=== PATIENT | female | born 1960 | race Caucasian/White ===

== ENCOUNTER 2017-08-23 07:51 | Inpatient (IN) | payer OTHER ==
[2017-07-29 11:31] VITALS: BMI 31.0
--- NOTE | 2017-07-29 12:04 | PAT Medication Instructions ---
Service Date Jul 29, 2017. Current Home Medication List Citalopram (Citalopram Hydrobromide), 20 MG PO QPM Hydrocodone/Acetaminophen 5MG/325MG (Webster 5MG/325MG), 1-2 TABLET PO UD PRN for Pain Latanoprost (Xalatan 0.005% Oph Madelaine), 1 DROPS OP HS Loratadine (Claritin), 10 MG PO QAM Pantoprazole (Protonix), 40 MG PO QAM Medication Instructions For Your Scheduled Surgery - Hold the following medications the morning of surgery: Loratadine (Claritin), 10 MG PO QAM - Take the following medications the morning of surgery with a sip of water: Hydrocodone/Acetaminophen 5MG/325MG (Webster 5MG/325MG), 1-2 TABLET PO UD PRN for Pain (if needed, can be taken up to four hours before surgery) Pantoprazole (Protonix), 40 MG PO QAM - Take the following medications as scheduled the night before surgery: Citalopram (Citalopram Hydrobromide), 20 MG PO QPM Hydrocodone/Acetaminophen 5MG/325MG (Webster 5MG/325MG), 1-2 TABLET PO UD PRN for Pain (if needed) Latanoprost (Xalatan 0.005% Oph Madelaine), 1 DROPS OP HS If you have any questions please call us at [phone] or [phone] or [phone]
[2017-07-29 12:50] LABS: BASO % 0.1 %; BASO ABS # 0.01 K/uL (0-0.2); EOS % 0.3 %; EOS ABS # 0.02 K/uL (0-0.5); HEMATOCRIT 42.5 % (37-47); HEMOGLOBIN 14.6 g/dL (12.0-16.0); IG# 0.01 K/uL (0.00-0.02); LYMPH % 24.8 %; LYMPH ABS # 1.96 K/uL (1.2-3.4); MEAN CELL VOLUME 86.4 fL (80-100); MEAN CORPUSCULAR HEMOGLOBIN 29.7 pg (25-34); MEAN CORPUSCULAR HGB CONC 34.4 g/dl (32-36); MEAN PLATELET VOLUME 9.5 fL (7.4-10.4); MONO % 6.6 %; MONO ABS # 0.52 K/uL (0.11-0.59); NEUT % 68.1 %; NEUT ABS # 5.37 K/uL (1.4-6.5); PLATELET COUNT 279 K/uL (130-400); RED CELL DISTRIBUTION WIDTH CV 13.9 % (11.5-14.5); RED CELL DISTRIBUTION WIDTH SD 43.9 fL (36.4-46.3); WHITE BLOOD COUNT 7.89 K/uL (4.8-10.8)
[2017-07-29 12:58] LABS: PTT PATIENT 26.4 SECONDS (21.0-31.0)
[2017-07-29 13:00] LABS: ALBUMIN 4.2 gm/dl (3.4-5.0); CALCIUM 9.8 mg/dl (8.5-10.1); CREATININE 0.65 mg/dl (0.60-1.20); POTASSIUM 4.7 mmol/L (3.5-5.1)
--- NOTE | 2017-07-29 13:07 | DIAGNOSTIC IMAGING REPORT ---
CHEST 2 VIEWS ROUTINE CLINICAL HISTORY: Preoperative chest COMPARISON STUDY: No previous studies for comparison. FINDINGS: The cardiac and mediastinal contours are normal. There is no evidence of focal pulmonary consolidation. There is no evidence of failure. No pleural effusions are visualized.[ IMPRESSION: No active disease in the chest. Electronically signed by: Hamilton Allan M.D. 07/29/2017 1:06 PM Dictated Date/Time: 07/29/2017 1:06 PM
[2017-07-29 13:24] LABS: HEMOGLOBIN A1C 5.4 % (4.5-5.6)
--- NOTE | 2017-08-19 08:42 | History and Physical ---
History & Physical Date Aug 19, 2017. Chief Complaint Left knee pain History of Present Illness The patient is a 57 year old female with complaints of left knee pain for several years. She has tried conservative therapy with minimal relief. She would like to proceed with scheduled surgery. Past Medical/Surgical History PMHx: GERD, Anxiety, Depression, hypercholesterolemia PSHx: Bilateral carpal tunnel release, cataract surgery, total hysterectomy, appendectomy Additional History Hepatic Disease: No Endocrine Disorder: No Kidney Disease: No Hypertension: No Heart Disease: No Bleeding Tendencies: No Infectious Diseases: No Allergies Coded Allergies: Sulfamethoxazole w/Trimethoprim (Verified Allergy, Unknown, rash on stomach, hands and feet swollen, 07/29/17) Home Medications Scheduled Citalopram (Citalopram Hydrobromide), 20 MG PO QPM Latanoprost (Xalatan 0.005% Oph Madelaine), 1 DROPS OP HS Loratadine (Claritin), 10 MG PO QAM Pantoprazole (Protonix), 40 MG PO QAM Scheduled PRN Hydrocodone/Acetaminophen 5MG/325MG (Hayti 5MG/325MG), 1-2 TABLET PO UD PRN for Pain Physical Examination Skin: warm/dry, no rash Eyes: normal inspection, EOMI ENT: normal ENT inspection Head: normocephalic, atraumatic Neck: supple, no adenopathy Respiratory/Chest: lungs clear, normal breath sounds Cardiovascular: regular rate, rhythm, no murmur Abdomen / GI: normal bowel sounds, non tender Extremities: normal inspection, + pertinent finding (Left knee medial joint line tenderness. Ligaments are intact, decrease ROM and strength due to pain) Neurologic/Psych: no motor/sensory deficits, alert, oriented x 3 Diagnosis Primary osteoarthritis of left knee Plan of Treatment Patient is scheduled for a left total knee arthroplasty. She has tried conservative therapy with minimal relief. She would like to proceed with scheduled surgery. Risks and benefits to surgery were discussed with the patient. She understands these risks and wishes to proceed. All questions were answered to her satisfaction. She will be 81mg BID for DVT prophylaxis and would like to go home with home health after her surgery. NO BLOOD PRODUCTS as the patient is a L[employer] day.
[2017-08-23] VITALS (9 sets, daily range): BP systolic 90–152; BP diastolic 55–79; PULSE 62–76; TEMP 36.3–36.8; O2SAT 93–98; Ht 157.5 cm; Wt 76.5 kg
[~2017-08-23] VITALS: Ht 157.5 cm; Wt 76.5 kg
[2017-08-23] MEDS: TRANEXAMIC ACID INJ 1,000 MG x 2 Bags IV SCH ×4 (06:30→11:20)
[~2017-08-23 07:51] MED LIST: ACETAMINOPHEN 500 MG TAB PO SCH; BUPIVACAINE 0.25% 30 ML VIAL ONE; BUPIVACAINE 0.5 % 5 MG/1 ML PF 10ML VIAL ONE; CEFAZOLIN 1000MG IV PUSH 7.5 ML IV SCH; CITA40TA4 PO; CLR10 PO; DEXAMETHASONE 4 MG TAB PO SCH; FAMOTIDINE 20 MG TAB PO SCH; GABAPENTIN 600 MG PO SCH; HYDR-5688 PO; LACTATED RINGER'S 1000ML 1,000 ML IV SCH; LACTATED RINGER'S 1000ML 500 ML IV SCH; LATA0.5S OP; METOCLOPRAMIDE HCL 10 MG TAB PO SCH; PANT40TA PO; ROPIVACAINE 5MG/ML 30 ML 150 MG, BUPIVACAINE 0.5% MPF INJ 30 ML, EpINEphrine HCL INJ 0.... INFIL SCH
[2017-08-23] MEDS ORDERED: FENTANYL CITRATE INJ 50 MCG/1 ML 2 ML VIAL ONE (08:47)
[2017-08-23] MEDS ORDERED: PROPOFOL IV EMULSION 10 MG/ML 20 ML VIAL IV ONE (08:47)
[2017-08-23] MEDS ORDERED: LIDOCAINE HCL 2% 2 ML VIAL (20MG/ML) ONE (08:47)
[2017-08-23] MEDS ORDERED: MIDAZOLAM HCL 1 MG/ML 2ML VIAL ONE (08:48)
--- NOTE | 2017-08-23 08:48 | History & Physical Bridge Note ---
H&P Re-Evaluation Bridge Note: I have examined the patient, reviewed the History & Physical and in the interval since the performance of the History & Physical I have noted the following changes of clinical significance: No changes noted
[2017-08-23] MEDS ORDERED: EpHEDrine SULFATE INJ 50 MG/ML AMP IV PRN (11:30)
[2017-08-23] MEDS ORDERED: ATROPINE SULFATE 0.1 MG/ML 5ML SYR IV PRN (11:30)
[2017-08-23] MEDS ORDERED: ONDANSETRON INJ 2 MG/ML 2 ML VIAL IV PRN ×2 (11:30→13:15)
[2017-08-23] MEDS ORDERED: FENTANYL CITRATE INJ 50 MCG/1 ML 2 ML VIAL IV PRN (11:30)
[2017-08-23] MEDS ORDERED: POVIDONE-IODINE OP SOLN 30 ML BTL ONE (11:34)
[2017-08-23] MEDS ORDERED: ORTHO JOINT ANESTHETIC ONE (11:34)
[2017-08-23] MEDS ORDERED: BACITRACIN 50000 UNIT VIAL ONE (11:34)
[2017-08-23] MEDS ORDERED: CEFAZOLIN SOD 1 GM VIAL ONE (12:13)
--- NOTE | 2017-08-23 13:08 | [facility] Operative Report ---
Operative Report Operative Date Aug 23, 2017. Pre-Operative Diagnosis Primary Osteoarthritis Left Knee Post-Operative Diagnosis Primary Osteoarthritis Left Knee Procedure(s) Performed Left Total Knee Arthroplasty Surgeon Dr. Cooper Wool Puller Surgeon(s) ERIC Enriquez Estimated Blood Loss 20 ml Specimens A. Left Knee Bone and Tissue Drains 2 Hemovac Anesthesia Type MAC Spinal Regional Complication(s) none Disposition Recovery Room / PACU Indications The patient is a 57-year-old female with long-standing osteoarthritic change of the left knee. She has failed conservative measures and wishes to proceed with a left total knee arthroplasty. Description of Procedure Risks benefits and alternatives of surgery including but not limited to infection, DVT, pain, stiffness, need for surgery, damage to blood vessels, damage to nerves or risks of anesthesia were discussed with the patient and they wished to proceed. The patient was identified and the laterality was confirmed and marked. They received a preoperative antibiotic as well as a spinal anesthetic and an abductor canal block. A well-padded tourniquet was applied and then the limb was prepped and draped in standard manner with ChloraPrep. The limb was exsanguinated and the tourniquet was inflated. I made a standard anterior incision. I sharply incised the skin then utilized Bovie electrocautery as well as the aqua mantis to achieve hemostasis. I made a medial parapatellar arthrotomy and mobilized the patella laterally. I then excised the anterior horns of the medial and lateral meniscus as well as the infrapatellar fat pad. I elevated a portion of the MCL off of the tibia. I then pinned into place a patient-matched distal femoral cutting guide and made my distal femoral resection. I then pinned into place the 4 in 1 femoral cutting guide. I made my anterior, posterior and chamfer cuts. I then excised the cruciates and the remaining portions of the menisci. I then pinned into place a patient- matched tibial cutting guide and made my tibial resection. I then pinned into place the tibial plate a utilizing alignment jennifer to confirm rotation. I then cut for the post. Utilizing a lamina irrigation flume layer and I then removed posterior osteophytes off the femur. I then placed a trial femur into position and cut for the trochlear component. I then sequentially trialed to size the polyethylene until there was good soft tissue balancing and range of motion. I then prepared the patella with a freehand cut utilizing sagittal saw. I sized and drilled for the patella. There was lateral tracking to the patella. A lateral release was performed. She then had good tracking of the patella. All the trial components were removed. The deep tissues were anesthetized with an ortho mix solution. Then with Simplex HV with gentamicin cement, I cemented my definitive components. Definitive components, [employer]: Femur 5 Tibia 3 Poly 9 Patella 26 round A betadine soak was performed. A deep drain was placed. The arthrotomy was closed with interrupted #1 Vicryl suture subcutaneous tissue was closed with interrupted 2-0 Vicryl suture. The skin was closed with with sharmila. A Silverlon was placed. Sterile dressings were applied. All needle and sponge counts were correct at the end of the procedure patient was transferred to the PACU in stable condition without apparent complication. The PA-C was necessary for assistance with procedure for assistance in positioning, prepping, draping, retraction and closure. I attest to the content of the Intraoperative Record and any orders documented therein. Any exceptions are noted below.
[2017-08-23] MEDS ORDERED: ZOLPIDEM TARTRATE 5 MG TAB PO PRN (13:15)
[2017-08-23] MEDS ORDERED: OXYCODONE HCL IR 5 MG TAB (IMMEDIATE RELEASE) PO PRN (13:15)
[2017-08-23] MEDS ORDERED: MoRPHine SULFATE 2 MG/ML CARP IV PRN (13:15)
[2017-08-23] MEDS ORDERED: ALUMINUM/MAGNESIUM/SIMETH (MAALOX MAX) 30 ML UDC PO PRN (13:15)
--- NOTE | 2017-08-23 14:00 | DIAGNOSTIC IMAGING REPORT ---
L KNEE 1 OR 2 VIEWS ROUTINE HISTORY: 57 years-old Female AP/LATERAL IN PACU LEFT KNEE status post left knee total joint arthroplasty. Degenerative joint disease. COMPARISON: None available TECHNIQUE: 3 views of the left knee FINDINGS: Postoperative changes from recent left knee total joint arthroplasty with patellar resurfacing. Alignment is satisfactory. Anterior midline skin sharmila are noted in addition to surgical drain and expected postsurgical soft tissue swelling with deep tissue air. No periprosthetic fracture or retained foreign body identified. IMPRESSION: Left knee total joint arthroplasty and patellar resurfacing without complication. The above report was generated using voice recognition software. It may contain grammatical, syntax or spelling errors. Electronically signed by: Drew Ledezma M.D. 08/23/2017 1:59 PM Dictated Date/Time: 08/23/2017 1:58 PM
--- NOTE | 2017-08-23 14:20 | Anesthesiology Progress Note ---
Anesthesia Post Op Note Date & Time Aug 23, 2017 at 14:20 Vital Signs Pain Intensity: 0 Vital Signs Past 12 Hours Date Time Temp Pulse Resp B/P (MAP) Pulse Ox O2 Delivery O2 Flow Rate FiO2 08/23/17 14:10 36.6 74 18 120/69 97 Nasal Cannula 2 08/23/17 14:00 72 13 110/66 99 Nasal Cannula 2 08/23/17 13:50 79 15 117/70 96 Nasal Cannula 2 08/23/17 13:42 36.4 92 17 106/49 96 Nasal Cannula 2 08/23/17 07:55 36.6 76 20 152/79 98 Room Air Notes Mental Status: alert / awake / arousable, participated in evaluation Pt Amnestic to Procedure: Yes Nausea / Vomiting: adequately controlled Pain: adequately controlled Airway Patency, RR, SpO2: stable & adequate BP & HR: stable & adequate Hydration State: stable & adequate Neuraxial Anesthesia: was administered, sensory block is resolving Anesthetic Complications: no major complications apparent
[2017-08-23] MEDS: KETOROLAC TROMETHAMINE 30 MG/ML VIAL IV. SCH ×2 (15:50→21:40)
[2017-08-23] MEDS: ACETAMINOPHEN 500 MG TAB PO SCH ×2 (15:50→23:20)
[2017-08-23] MEDS: FERROUS GLUCONATE 324 MG TAB PO SCH (17:53)
[2017-08-23] MEDS: CEFAZOLIN IV 2,000 MG in SYRINGE 0 ML IV SCH (19:30)
[2017-08-23] MEDS: LATANOPROST 0.005% OP SOLN 2.5 ML BTL OP SCH (20:38)
[2017-08-23] MEDS: D5W AND 1/2NSS + 20MEQ KCL 1,000 ML IV SCH (20:39)
[2017-08-23] MEDS: CITALOPRAM 40 MG TAB PO SCH (20:40)
[2017-08-23] MEDS: DOCUSATE SODIUM 100 MG CAP PO SCH (20:40)
[2017-08-23] MEDS: ASPIRIN 81 MG ECTAB PO SCH (20:40)
[2017-08-24 03:20] VITALS: BP 100/63; PULSE 75; TEMP 36.6; O2SAT 95
[2017-08-24] MEDS: CEFAZOLIN IV 2,000 MG in SYRINGE 0 ML IV SCH (04:34)
[2017-08-24] MEDS: KETOROLAC TROMETHAMINE 30 MG/ML VIAL IV. SCH ×2 (04:40→09:44)
[2017-08-24] MEDS: D5W AND 1/2NSS + 20MEQ KCL 1,000 ML IV SCH ×2 (04:51→12:40)
[2017-08-24 06:36] LABS: HEMATOCRIT 34.9 % (37-47); HEMOGLOBIN 11.7 g/dL (12.0-16.0); MEAN CELL VOLUME 86.8 fL (80-100); MEAN CORPUSCULAR HEMOGLOBIN 29.1 pg (25-34); MEAN CORPUSCULAR HGB CONC 33.5 g/dl (32-36); MEAN PLATELET VOLUME 9.6 fL (7.4-10.4); PLATELET COUNT 253 K/uL (130-400); RED CELL DISTRIBUTION WIDTH CV 13.8 % (11.5-14.5); RED CELL DISTRIBUTION WIDTH SD 43.9 fL (36.4-46.3); WHITE BLOOD COUNT 13.65 K/uL (4.8-10.8)
[2017-08-24 06:52] VITALS: BP 99/66; PULSE 63; TEMP 36.4; O2SAT 95
[2017-08-24 07:16] LABS: CALCIUM 8.6 mg/dl (8.5-10.1); CREATININE 0.58 mg/dl (0.60-1.20); POTASSIUM 4.1 mmol/L (3.5-5.1)
[2017-08-24] MEDS ORDERED: DEXAMETHASONE 4 MG TAB PO SCH (07:30)
[2017-08-24] MEDS: ACETAMINOPHEN 500 MG TAB PO SCH ×2 (08:33→15:27)
[2017-08-24] MEDS: FERROUS GLUCONATE 324 MG TAB PO SCH ×3 (08:33→17:38)
[2017-08-24] MEDS: LORATADINE 10 MG TAB PO SCH (08:34)
[2017-08-24] MEDS: DOCUSATE SODIUM 100 MG CAP PO SCH ×2 (08:34→20:26)
[2017-08-24] MEDS: PANTOprazole SOD 40 MG TAB PO SCH (08:34)
[2017-08-24] MEDS: ASPIRIN 81 MG ECTAB PO SCH ×2 (08:34→20:26)
[2017-08-24] MEDS: MULTIVITAMIN TAB PO SCH (08:34)
--- NOTE | 2017-08-24 09:17 | Orthopedic Progress Note ---
Orthopedic Progress Note Date of Service Aug 24, 2017. Subjective Post OP Day: 2 Reports: feeling well, Denies: chest pain, SOB, nausea / vomiting, light headedness, calf pain Objective calves soft nontender, N/V intact, capillary refill less than 2 sec., dressing C /D/I, A&O x3, toes mobile, hemovac drainage (190/250CC PER SHIFT) Date Time Temp Pulse Resp B/P (MAP) Pulse Ox O2 Delivery O2 Flow Rate FiO2 08/24/17 07:43 Room Air 08/24/17 06:52 36.4 63 18 99/66 (77) 95 Room Air 08/24/17 03:20 36.6 75 18 100/63 (75) 95 Room Air 08/23/17 23:20 Room Air 08/23/17 23:09 36.6 68 17 99/60 (73) 94 Room Air 08/23/17 20:08 36.4 64 16 109/66 (80) 96 Room Air 08/23/17 18:30 36.6 66 16 90/55 (67) 96 Nasal Cannula 2.0 08/23/17 16:38 36.3 62 16 105/64 (78) 93 Nasal Cannula 2.0 08/23/17 15:45 96 Nasal Cannula 2.0 08/23/17 15:32 36.4 66 16 103/67 (79) 94 Room Air 08/23/17 14:52 68 16 109/68 (82) 95 Nasal Cannula 2.0 08/23/17 14:30 Nasal Cannula 2.0 08/23/17 14:30 36.8 71 14 115/72 (86) 97 Nasal Cannula 2.0 08/23/17 14:10 36.6 74 18 120/69 97 Nasal Cannula 2 08/23/17 14:00 72 13 110/66 99 Nasal Cannula 2 08/23/17 13:50 79 15 117/70 96 Nasal Cannula 2 08/23/17 13:42 36.4 92 17 106/49 96 Nasal Cannula 2 Laboratory Results 24 Hours: Test 08/24/17 06:09 Hematocrit 34.9 % Hemoglobin 11.7 g/dL Assessment & Plan Assessment: POD#1 SP LEFT TKA Plan: PT/OT DVT PROPH- ASA 81MG BID PAIN MANAGEMENT- KATHERINE, TYLENOL, DC PLANNING- HOME WITH HOME PT, LIKELY TOMORROW DC DRESSING/DRAIN IN AM.
[2017-08-24 15:24] VITALS: BP 124/74; PULSE 74; TEMP 36.6; O2SAT 93
[2017-08-24] MEDS: LATANOPROST 0.005% OP SOLN 2.5 ML BTL OP SCH (20:26)
[2017-08-24] MEDS: CITALOPRAM 40 MG TAB PO SCH (21:00)
[2017-08-24 23:04] VITALS: BP 120/73; PULSE 64; TEMP 36.6; O2SAT 95
[2017-08-25] MEDS: ACETAMINOPHEN 500 MG TAB PO SCH ×2 (00:13→07:28)
[2017-08-25 06:23] VITALS: BP 139/84; PULSE 66; TEMP 36.7; O2SAT 98
[2017-08-25] MEDS: FERROUS GLUCONATE 324 MG TAB PO SCH (07:27)
[2017-08-25] MEDS: MULTIVITAMIN TAB PO SCH (07:27)
[2017-08-25] MEDS: PANTOprazole SOD 40 MG TAB PO SCH (07:27)
[2017-08-25] MEDS: LORATADINE 10 MG TAB PO SCH (07:27)
[2017-08-25] MEDS: ASPIRIN 81 MG ECTAB PO SCH (07:59)
[2017-08-25] MEDS: DOCUSATE SODIUM 100 MG CAP PO SCH (07:59)
--- NOTE | 2017-08-25 08:58 | Orthopedic Progress Note ---
Orthopedic Progress Note Date of Service Aug 25, 2017. Subjective Post OP Day: 2 Reports: feeling well, Denies: chest pain, SOB, nausea / vomiting, light headedness, calf pain Objective calves soft nontender, N/V intact, capillary refill less than 2 sec., incision C /D/I, A&O x3, toes mobile Date Time Temp Pulse Resp B/P (MAP) Pulse Ox O2 Delivery O2 Flow Rate FiO2 08/25/17 07:15 Room Air 08/25/17 06:23 36.7 66 18 139/84 (102) 98 Room Air 08/25/17 00:05 Room Air 08/24/17 23:04 36.6 64 18 120/73 (89) 95 Room Air 08/24/17 15:30 Room Air 08/24/17 15:24 36.6 74 16 124/74 (91) 93 Room Air Assessment & Plan Assessment: POD#2 SP LEFT TKA Plan: PT/OT DVT PROPH- ASA 81MG BID PAIN MANAGEMENT- KATHERINE, TYLENOL, DC PLANNING- HOME WITH HOME PT TODAY
[2017-08-25] MEDS ORDERED: ACET-24 PO (09:05)
[2017-08-25] MEDS ORDERED: ASPEC81 PO (09:05)
[2017-08-25] MEDS ORDERED: ONDA-170 PO (09:05)
[2017-08-25] MEDS ORDERED: HYDR-5688 PO (09:05)
--- NOTE | 2017-08-25 09:06 | Discharge Instructions ---
Discharge Instructions Date of Service Aug 25, 2017. Admission Reason for Admission: Left Knee Osteoarthritis Discharge Discharge Diagnosis / Problem: SP LEFT TKA Discharge Goals Goal(s): Decrease discomfort, Improve function, Increase independence Activity Recommendations Activity Limitations: per Instructions/Follow-up section . Instructions / Follow-Up Instructions / Follow-Up ACTIVITY RECOMMENDATIONS: SELF CARE INSTRUCTIONS AFTER TOTAL KNEE REPLACEMENT A. You may need to continue a physical therapy program after discharge from the hospital. There are several options available to you. Your doctor will assist you in selecting the best one for you. 1. An out-patient facility 2 to 3 times a week for therapy or home therapy. 2. Continue working on all exercises taught to you in the hospital. Your goals should be to increase bending of your knee to 90 degrees and beyond and to fully straighten your knee. B. You may progress at your own pace from walking with a walker or crutches to a cane; then to no assistive devices. C. Make walking a part of your daily routine. Be up as much as comfortable with rest periods throughout the day. Rest with leg elevation is very important. Use the ice wrap frequently for the first 3-4 weeks. D. There are no restrictions on activities. You may ride in a car, shop, participate in foil wrapper and all social activities. E. Wear the long elastic stockings (HORACE hose) 20 hours a day for 2 weeks after surgery. They can be removed several times a day for laundering and for a bath. F. You may shower, no tub baths until cleared by your doctor. SPECIAL CARE INSTRUCTIONS: VERY IMPORTANT TO READ AND REVIEW A. There are a few signs you need to watch for after you are home. Call [facility] if you notice any of the followin. Increased severe knee pain. Some pain is expected especially when you exercise. 2. Increased swelling in your leg or knee; pain or swelling of the calf muscle in either lower leg. 3. Any fluid drainage from the incision. 4. Shortness of breath or chest pain. B. Please call [facility] at if you have any concerns or questions about your operation or recovery. The doctor or his nurse will return your call promptly. C. You must take antibiotics before dental work, bladder, bowel or other surgery. Your doctor will provide you with a permanent care to carry describing this precaution. IMPORTANT: * REMEMBER TO TAKE ASPIRIN, 81 MG, TWICE DAILY FOR 4 WEEKS UNLESS OTHERWISE DIRECTED. THIS IS YOUR BLOOD THINNER. * HIGH RISK PATIENTS MAY BE PRESCRIBED A STRONGER BLOOD THINNER. THIS WILL BE PROVIDED AT DISCHARGE. * CALL IF INCREASED PAIN, REDNESS, DRAINAGE OR FEVER GREATER THAT 101. * WEAR HORACE HOSE 20 HOURS PER DAY FOR 2 WEEKS. * YOU MAY HAVE A LARGE BAND-AID LIKE DRESSING (SILVERON). THIS WILL REMAIN ON YOUR INCISION FOR 7 DAYS, THEN CAN BE REMOVED. IF INCISION IS LEAKING THROUGH DRESSING, CALL THE OFFICE . FOLLOW UP VISIT: If appointment is not already scheduled: Please call [facility] to make a follow-up appointment for 2 weeks after your surgery at . Current Hospital Diet Patient's current hospital diet: Regular Diet Discharge Diet Recommended Diet: Regular Diet Procedures Procedures Performed: Left Total Knee Arthroplasty Pending Studies Studies pending at discharge: no Laboratory Results Hemoglobin A1c Test 07/29/17 12:15 Range/Units Estimated Average Glucose 108 mg/dl Hemoglobin A1c 5.4 4.5-5.6 % Medical Emergencies . Who to Call and When: Medical Emergencies: If at any time you feel your situation is an emergency, please call 911 immediately. . Non-Emergent Contact Non-Emergency issues call your: Surgeon . "Provider Documentation" section prepared by Nancy Dennis. .
[2017-08-25 09:45] VITALS: BP 139/84; PULSE 66; TEMP 36.7; O2SAT 98
--- NOTE | 2017-08-28 09:49 | Discharge Summary ---
Orthopedic Discharge Summary Admission Date/Reason Aug 23, 2017 at 13:20 Left Knee Osteoarthritis. Discharge Date/Disposition Aug 25, 2017 Home with services Diagnosis Principal Diagnosis: S/P left TKA Medication Reconciliation as per discharge instructions Admission Physical Exam As per Admitting History & Physical. Hospital Course POD#1 patient was feeling well with no complaints. Dressing was clean, dry and intact. She had some drainage from her knee at the time that we will keep her over for at this point. She would like to go home with home health when discharged. POD#2 patient was feeling well with no complaints. Dressing was clean, dry and intact. Her drain was pulled. She was later discharged home with home health after morning PT. Discharge Instructions Please refer to the electronic Patient Visit Report (Discharge Instructions) for additional information.
== END 2017-08-25 10:36 | disposition home health service (06) | DRG 470 ==
LOC: C.ACU 07:51 → C.3E 13:20 → ENRESERV 14:03
PROVIDERS: ADMIT Orthopaedic Surgery; ATTEND Orthopaedic Surgery
PROC: 0SRD0J9 Replacement of Left Knee Joint with Synthetic Substitute, Cemented, Open Approach (ICD-10-PCS; principal; 2017-08-23 10:30)
DX: M17.12 Unilateral primary osteoarthritis, left knee (principal); K21.9 Gastro-esophageal reflux disease without esophagitis; F41.8 Other specified anxiety disorders; Z88.2 Allergy status to sulfonamides

== ENCOUNTER 2024-02-10 08:50 | Observation (INO) ==
--- NOTE | 2024-01-08 11:39 | PAT Medication Instructions ---
Medication Instructions Date of Service January 08, 2024 Home Medications atorvastatin 20 mg tablet 20 mg PO HS cetirizine 10 mg tablet 10 mg PO QAM citalopram 40 mg tablet 40 mg PO HS latanoprost (PF) 0.005 % eye drops in a dropperette 1 drp ophthalmic (eye) HS pantoprazole 40 mg tablet,delayed release 40 mg PO QAM DO NOT take the morning of surgery cetirizine 10 mg tablet 10 mg PO QAM Take morning of surgery With a small sip of water, OTHERWISE NOTHING TO EAT OR DRINK AFTER MIDNIGHT: pantoprazole 40 mg tablet,delayed release 40 mg PO QAM Take evening before surgery atorvastatin 20 mg tablet 20 mg PO HS citalopram 40 mg tablet 40 mg PO HS latanoprost (PF) 0.005 % eye drops in a dropperette 1 drp ophthalmic (eye) HS Other Notes If you have any questions please call us at [phone] or [phone] or [phone] or [phone]
--- NOTE | 2024-01-14 12:11 | Anesthesiology Consultation ---
Date of Service January 14, 2024 Assessment & Plan (1) Encounter for pre-operative examination: - needle phobia: with h/o vasovagal syncope. She notes did well with sedation and distracting conversation prior to spinal block with previous neuraxial anesthesia. - no blood transfusions. - Outpatient joint assessment: Patient is currently scheduled for inpatient pathway. If re-evaluated and patient/surgeon requests outpatient pathway, patient is acceptable candidate for outpatient joint program from anesthesia standpoint pending surgeon's office assessment of pt motivation/support/completion of same day joint program preop requirements. Chart Review Chart Review: Acceptable Risk for Surgery and Patient seen in Pre Admission Testing Teaching & Discussion Pre-Anesthesia Teaching/Discussion Notes: Instructed NPO after midnight before surgery, except medications with 15 cc of water. Medication instructions provided according to the PAT guidelines. History Surgery Operation Date: 02/10/24 08:00 Proposed Procedures p Right Total Knee Arthroplasty - Cristóbal Lora, Height/Weight Height: 5 ft 3 in Weight: 81.2 kg Allergies Allergy/AdvReac Type Severity Reaction Status Date / Time Bactrim Allergy Unknown rash on Verified 08/23/17 08:32 stomach, hands and feet swollen sulfamethoxazole [Bactrim] Allergy Unknown rash on Verified 01/06/24 11:24 stomach, hands and feet swollen trimethoprim [Bactrim] Allergy Unknown rash on Verified 01/06/24 11:24 stomach, hands and feet swollen Medications Home Medications Medication Instructions Recorded Confirmed Last Taken atorvastatin 20 mg tablet 20 mg PO HS 01/06/24 01/06/24 Unknown cetirizine 10 mg tablet 10 mg PO QAM 01/06/24 01/06/24 Unknown citalopram 40 mg tablet 40 mg PO HS 01/06/24 01/06/24 Unknown latanoprost (PF) 0.005 % eye drops 1 drp ophthalmic (eye) HS 01/06/24 01/06/24 Unknown in a dropperette pantoprazole 40 mg tablet,delayed 40 mg PO QAM 01/06/24 01/06/24 Unknown release Past Medical History Medical History Anxiety GERD (gastroesophageal reflux disease) controlled, stable per pt Needle phobia Congregational or spiritual beliefs affecting medical care no blood transfusions-Religious Seasonal allergies Vasovagal syncope hx-"happens once every couple of years" typically related to anxiety/medical situations Patient denies h/o stroke, seizures, heart attack, heart failure, DM, HTN, blood clots/DVTs or blood transfusions. Exercise / Class Metabolic Activity II 4-5 Yardwork/Stairs/Walk up hill (denies chest discomfort or shortness of breath with one flight of stairs) Past Surgical History Surgical History History of carpal tunnel release of both wrists History of cryosurgery w/D&C History of esophagogastroduodenoscopy (EGD) History of total left knee replacement Hx of bilateral cataract extraction Hx of breast surgery benign tumor/cyst removed, lt breast Hx of cholecystectomy Hx of colonoscopy Hx of hysterectomy Hx of melanoma excision from in between shoulder blades on back, years ago Hx of salpingo-oophorectomy, bilateral w/appendectomy Hx of tonsillectomy age 2 Past Anesthesia History No Hx of Anesthesia Complications and No Family Hx of Anesthesia Complications History of PONV No Hx of Motion Sickness and History of PONV (denies needing scop patch) Social History Smoking Status: Never smoker Do You Dip or Chew Tobacco: No Hx Alcohol Use: Yes Alcohol type: beer alcohol intake frequency: holidays/special occasions only Hx Substance Use: No substance use type: does not use Review of Systems Snoring, denies witnessed apneas. Patient denies chest pain, shortness of breath, dyspnea on exertion, fever, chills, cough, wheezing, or palpitations. Physical Exam Vital Signs Vitals BP 100/66 (BP is usually in this range per patient and her -she denies any dizziness or lightheadedness) P 69 TEMP 97.7 SP02 96% on RA RESP 18 Physical Patient resting comfortably in chair in no acute distress, alert and oriented, responding appropriately throughout visit Full cervical extension range of motion without pain TMD 3.5 finger breadths Mallampati Score 2 Dentition: intact, denies chipped or loose teeth, caps/crowns, implants or bridges Lungs: normal respiratory effort. Good air movement, clear throughout to au scultation, no adventitious breath sounds Cardiac: regular rate and rhythm, no murmurs noted Carotid arteries: negative bruit bilat Lab Results Anesthesia Preop Results Results Anesthesia Widget: WBC 7.78 K/ul (4.8-10.8) 01/14/24 Hgb 14.2 g/dl (12.0-16.0) 01/14/24 Hct 42.0 % (37.0-47.0) 01/14/24 Plt 300 K/uL (130-400) 01/14/24 Na 137 mmol/L (136-145) 01/14/24 K 4.1 mmol/L (3.5-5.1) 01/14/24 Cl 105 mmol/L (98-107) 01/14/24 CO2 26 mmol/L (21-32) 01/14/24 BUN 15 mg/dl (6-23) 01/14/24 Creat 0.58 mg/dl (0.6-1.2) L 01/14/24 Glucose Level 136 mg/dl (70-99(Fasting)) H 01/14/24 PT 10.4 Seconds (9.0-12.0) 01/14/24 PTT 26 Seconds (21-31) 01/14/24 INR 1.0 (0.9-1.1) 01/14/24 Blood Type A Positive 01/14/24 Antibody Screen NEGATIVE 01/14/24 Testing Electrocardiogram Date: 01/14/24 NSR, rate 69 bpm Rightward axis Chest X-Ray Date: 01/14/24 No acute chest disease.
[~2024-02-10 08:50] MED LIST changes: -ACETAMINOPHEN 500 MG TAB PO SCH; -BUPIVACAINE 0.25% 30 ML VIAL ONE; +BUPIVACAINE/EPINEPHRINE 0.25% 1:200,000 30 ML VIAL ONE; -CEFAZOLIN 1000MG IV PUSH 7.5 ML IV SCH; -CITA40TA4 PO; -CLR10 PO; -DEXAMETHASONE 4 MG TAB PO SCH; +DEXAMETHASONE SOD INJ 4 MG/ML VIAL ONE; -FAMOTIDINE 20 MG TAB PO SCH; -GABAPENTIN 600 MG PO SCH; -HYDR-5688 PO; -LACTATED RINGER'S 1000ML 1,000 ML IV SCH; -LACTATED RINGER'S 1000ML 500 ML IV SCH; -LATA0.5S OP; -METOCLOPRAMIDE HCL 10 MG TAB PO SCH; -PANT40TA PO; -ROPIVACAINE 5MG/ML 30 ML 150 MG, BUPIVACAINE 0.5% MPF INJ 30 ML, EpINEphrine HCL INJ 0.... INFIL SCH
[2024-02-10] MEDS ORDERED: MIDAZOLAM HCL 1 MG/ML 2ML VIAL ONE (09:36)
[2024-02-10] MEDS ORDERED: fentaNYL citrate PF 100 MCG/2 ML VIAL ONE (09:36)
[2024-02-10] MEDS: LR 60ML/HR IV SCH (09:50)
[2024-02-10] MEDS: FAMOTIDINE 20 MG TAB PO SCH (09:50)
[2024-02-10] MEDS: ACETAMINOPHEN 500 MG TAB PO SCH ×2 (09:50→14:38)
[2024-02-10] MEDS: GABAPENTIN 300 MG CAP PO SCH (09:50)
[2024-02-10] MEDS: LR 500ML BOLUS, THEN 15ML/HR IV SCH (09:54)
[2024-02-10] MEDS: dexAMETHasone**PF** 10 MG/ML VIAL IV SCH (10:01)
--- NOTE | 2024-02-10 10:05 | History & Physical Bridge Note ---
Date of Service February 10, 2024 History & Physical Bridge Note I have examined the patient, reviewed the History & Physical and in the interval since the performance of the History & Physical I have noted the following changes of clinical significance: no changes noted
[2024-02-10] MEDS ORDERED: ONDANSETRON INJ 2 MG/ML 2 ML VIAL IV PRN ×2 (10:14→13:46)
[2024-02-10] MEDS ORDERED: fentaNYL citrate PF 100 MCG/2 ML VIAL IV PRN (10:14)
[2024-02-10] MEDS ORDERED: PROMETHAZINE HCL 6.25 MG in SODIUM CHLORIDE 0.9% 50 ML IV PRN (10:14)
[2024-02-10] MEDS ORDERED: ATROPINE SULFATE 0.1 MG/ML 10ML SYR IV PRN (10:14)
[2024-02-10] MEDS ORDERED: ePHEDrine sulfate 50 MG/ML AMP IV PRN (10:14)
[2024-02-10] MEDS: TRANEXAMIC ACID 1,000 MG **IV Pre-op IV SCH (10:53)
[2024-02-10] MEDS: ceFAZolin 2000MG 2,000 MG/15 ML SYR IV SCH ×2 (11:07→17:53)
[2024-02-10] MEDS ORDERED: LIDOCAINE 2% 2 ML VIAL/AMP(20MG/ML) INFIL ONE (11:30)
[2024-02-10] MEDS ORDERED: PROPOFOL IV EMULSION 10 MG/ML 20 ML VIAL IV ONE (11:30)
[2024-02-10] MEDS ORDERED: ONDANSETRON INJ 2 MG/ML 2 ML VIAL ONE (11:39)
[2024-02-10] MEDS: ROPIV 0.5% 246mg, Ketorolac 30mg, EPINEPHrine 0.5mg in NSS INFIL SCH (12:16)
[2024-02-10] MEDS: ORTHO JOINT ANESTHETIC ONE (12:17)
[2024-02-10] MEDS: TRANEXAMIC ACID 1,000 MG **IV Intra-op IV SCH (12:17)
--- NOTE | 2024-02-10 12:18 | Operative Report ---
PG Post Operative Report Pre & Post Diagnosis Operation Date: 02/10/24 11:00 Pre-Op Diagnosis: Degenerative Joint Disease Right Knee Post-Op Diagnosis: Degenerative Joint Disease Right Knee I identified the patient and participated in the time-out.: Yes Procedure Operation Date: 02/10/24 11:00 Actual Procedures p Right Total Knee Arthroplasty(Right) - Cristóbal Lora DO Surgeon Cristóbal Lora DO Dynamo Repairer Cristóbal Marin PA-C Estimated Blood Loss 30 Findings Consistent with Post-Op Diagnosis Specimens Right femoral and tibial bone Description of Procedure Implants used: I used a Kalen Persona total knee arthroplasty system with a size 8 PS standard femur, D tibia, 31 oval patella, and a size 12 CPS polyethylene bearing. All components were cemented in place with Biomet cement. Amanda arrived [facility] for the above procedure. She was seen in the preoperative holding area and the operative extremity was identified and signed. She was given a preoperative antibiotic, TXA, a spinal anesthetic and an adductor nerve block. She was taken back to the operating room and laid on the table in supine position. She was given basic sedation. The operative knee was then prepped and draped in sterile fashion. A timeout was done, and the patient and the operative extremity was properly identified. A midline incision was made directly over the patella. Dissection was taken down to the extensor mechanism. A subvastus arthrotomy was used. The medial retinaculum was released and the fat pad was mostly excised. The knee was flexed and the ACL, PCL, and meniscus were removed. A drill was sent down the center of the femoral canal followed by an intramedullary jennifer. Off that jennifer a distal femoral cutting block was placed. 9 mm was resected off the distal femur at 5 of valgus. A posterior referencing AP sizing guide was then placed on the distal femur. The femur measured to be a size 8. 2 drill holes were placed in 3 of external rotation. A 4-in-1 cutting block was then impacted into place. Anterior, posterior, and chamfer cuts were then made. The proximal tibia was then exposed. An external tibial alignment guide was placed. A tibial cut guide was then anchored in place and the proximal tibia was then resected. The posterior aspect of the knee was then opened up and any additional meniscus fragments and osteophytes were removed. The tibia measured to be a size D. The tibial plate was then placed in the appropriate rotation and the tibia was drilled and punched. Trial components were then placed. I used a size 12 CPS polyethylene insert. The knee was brought through a full range of motion and felt to be stable. The peg holes for the femoral component were then drilled. The patella was then everted and 9 mm was resected off the posterior aspect of the patella. The patella measured to be a size 31 oval. 3 peg holes were then drilled. A trial patella was placed. The knee was once again brought through a full range of motion and felt to be stable. Trial components were then removed. The surrounding soft tissues were injected with 100 cc of an orthopedic pain control cocktail. All components were then cemented into place with Biomet cement. The final polyethylene insert was then snapped into place. Once cement was dry the tourniquet was deflated. Hemostasis was obtained. A dilute betadyne lavage was then done for 3 minutes. The joint was then irrigated with normal saline solution. The subvastus arthrotomy was then closed with #1 Vicryl suture. The skin was closed with 2-0 Vicryl, 3-0V lock suture, and sharmila. A soft compressive dressing was placed. She was then transferred to a hospital bed and taken to the postanesthesia care unit in stable condition. She tolerated the procedure well. Cristóbal Marin PA-C, was present for the entire procedure. He was critical for patient positioning, prepping, draping, retraction exposure, wound closure and application of sterile dressing. I attest to the content of the Intraoperative Record and any orders documented therein. Any exceptions are noted below.
--- NOTE | 2024-02-10 13:27 | Anesthesiology Progress Note ---
Date of Service February 10, 2024 Anesthesia Post Procedure Vital Signs Vital Signs: Temp Pulse Pulse Resp BP Pulse Ox O2 Del Method 02/10/24 13:25 36.4 C L 70 16 120/66 98 Room Air 02/10/24 13:15 36.4 C L 72 17 119/64 98 Room Air 02/10/24 13:05 36.4 C L 73 13 117/64 100 Room Air 02/10/24 12:55 73 14 116/64 100 Oxymask 02/10/24 12:45 76 16 117/55 L 100 Oxymask 02/10/24 12:35 36.6 C 84 16 123/51 L 100 Oxymask 02/10/24 09:41 36.7 C 74 20 148/80 H 96 Room Air O2 Flow Rate 02/10/24 13:25 02/10/24 13:15 02/10/24 13:05 02/10/24 12:55 4 02/10/24 12:45 4 02/10/24 12:35 6 02/10/24 09:41 Pain Intensity Right Knee: Pain Intensity: 0 Transfer of Care Handoff Completed per policy Notes Mental Status: alert / awake / arousable Patient Amnestic to Procedure: Yes Nausea / Vomiting: adequately controlled Pain: adequately controlled Airway Patency, RR, SpO2: stable & adequate BP & HR: stable & adequate Hydration State: stable & adequate Neuraxial Anesthesia: was administered and sensory block is resolving Anesthetic Complications: no major complications apparent and Pt Satisfied with anesthetic care
[2024-02-10] MEDS ORDERED: NALOXONE HCL 0.4 MG/1 ML VIAL/CARP IV PRN (13:46)
[2024-02-10] MEDS ORDERED: MAGNESIUM HYDROXIDE SUSP 30 ML UDC PO PRN (13:46)
[2024-02-10] MEDS ORDERED: bisacodyL 10 MG SUPP PR PRN (13:46)
[2024-02-10] MEDS: SODIUM CHLORIDE 0.9% 1,000 ML IV SCH (13:54)
[2024-02-10] MEDS: KETOROLAC TROMETHAMINE 15 MG/ML VIAL IV SCH (14:38)
[2024-02-10] MEDS: oxyCODONE HCL IR 5 MG TAB (IMMEDIATE RELEASE) PO PRN (15:31)
--- NOTE | 2024-02-10 16:01 | XRay Report ---
XR knee RT 1 or 2V routine CLINICAL HISTORY: Postoperative evaluation. COMPARISON: Right knee radiographs September 27, 2023. FINDINGS: Alignment of the total right knee arthroplasty is anatomic. There is no periprosthetic fra cture or unexpected radiopaque foreign body. There are skin sharmila. IMPRESSION: Expected findings following total right knee arthroplasty. ACT 112: Negative or not required by law. Electronically signed by: Darryl Pratt M.D. 02/10/2024 4:00 PM
[2024-02-10] MEDS: HYDROmorphone INJ 0.5 MG/0.5 ML SYR IV PRN (18:13)
[2024-02-10] MEDS: METOCLOPRAMIDE HCL INJ 5 MG/ML 2 ML VIAL IV PRN (21:12)
[2024-02-10] MEDS: CITALOPRAM 40 MG TAB PO SCH (21:16)
[2024-02-10] MEDS: ASPIRIN 81 MG ECTAB PO SCH (21:16)
[2024-02-10] MEDS: DOCUSATE SODIUM 100 MG CAP PO SCH (21:16)
[2024-02-10] MEDS: ATORVASTATIN 20 MG TAB PO SCH (21:16)
[2024-02-10] MEDS: SENNA 8.6 MG TAB PO SCH (21:17)
[2024-02-10] MEDS ORDERED: ALUMINUM/MAGNESIUM SUSP 30 ML UDC PO PRN (22:06)
[2024-02-10] MEDS ORDERED: CALCIUM CARBONATE 500 MG CHEWABLE TAB PO PRN (22:06)
[2024-02-10] MEDS: LATANOPROST 0.005% OP SOLN 2.5 ML BTL OP SCH (22:42)
--- NOTE | 2024-02-11 07:04 | Orthopedic Progress Note ---
Date of Service February 11, 2024 Assessment & Plan (1) Status post right knee replacement: Overall she is doing very well. She is not having much pain in the right knee. She will be seen by physical therapy today doing ambulation and range of motion exercises. The nursing staff can change her dressing after physical therapy. She is on aspirin for DVT prophylaxis. She can be discharged to home later today. She will follow-up orthopedics in 2 weeks. Subjective Amanda was seen and examined at bedside this morning. Overall she is doing very well. She is not having much pain in the right knee. She has been up and ambulating to the bathroom. She has no complaints.. Review of Systems All systems reviewed & are unremarkable except as noted in HPI & below. Physical Exam On physical examination of the right knee, the dressing is clean and dry. Her leg is out full extension. She has active dorsiflexion plantarflexion of her right ankle.. Results & Data Results & Data Laboratory Results . Diagnostic Findings Postoperative x-rays of the right knee show the prosthesis to be in anatomic alignment without any evidence of fracture, dislocation, or loosening.. PG Care Time/CCT Total # of Minutes Spent Total Time Spent with Patient: Total time spent is greater than 50% in coordination of care (as documented) at patient's floor/unit and/or counseling patient: Coding Level of Care Code 68556 Post Operative Follow-Up Diagnoses Status post right knee replacement Z96.651
--- NOTE | 2024-02-11 07:04 | Discharge Summary ---
Date of Service February 11, 2024 Principal Diagnosis Same as "Discharge Diagnosis" noted below under Discharge Instructions. Discharge Exam On physical examination of the right knee, the dressing is clean and dry. Her leg is out full extension. She has active dorsiflexion plantarflexion of her right ankle.. Discharge Data Procedures Performed Operation Date: 02/10/24 11:00 Actual Procedures p Right Total Knee Arthroplasty(Right) - Cristóbal Lora DO Ordered Studies 02/10/24 05:00 US - OR guided needle placemen Routine Hospital Course (1) Status post right knee replacement: On February 10, 2024 Amanda arrived at [facility] and underwent a right knee replacement without complication. She had a spinal anesthetic. Postoperatively she was started on aspirin for DVT prophylaxis and transferred to the general orthopedic floors. Her hospital course was uneventful. On postop day #1, her vital signs were stable and her pain was well-controlled. She was able to participate well with physical therapy doing ambulation and range of motion exercises. She was then discharged to home. She will follow-up with orthopedics in 2 weeks. PG Care Time/CCT Total # of Minutes Spent Total Time Spent with Patient: Total time spent is greater than 50% in coordination of care (as documented) at patient's floor/unit and/or counseling patient: Discharge Plan Discharge Items Patient Disposition: Home - Self-Care Reason For Visit: Degenerative Joint Disease Right Knee Discharge Diagnosis: Right knee replacement Activity: As commented below Non-emergency contact: Surgeon Call non-emergency contact if: your wound has increased redness and your wound has increased drainage Follow-up/Referrals: Giovanni Root DO [Primary Care Provider] - Diet: Regular Addtl Attending Provider Instructions: Activity and Therapy Recommendations: * If you are using [facility] then therapy will be provided at your home until they feel you have accomplished all of your goals. * If you are using [facility] then Physical Therapy will be provided until they feel you are ready to start Outpatient Physical Therapy. * If you are not using home therapy then Outpatient Physical Therapy should start about 3-5 days from your day of surgery. Therapy will last about 6-10 weeks * It is important not to put a pillow under your knee when you are relaxing or sleeping. It is just as important to make sure you are getting your knee perfectly straight as it is to regain your knee bend. * You were shown a series of exercises in the hospital. Do these exercises three times each day including the exercises you were shown in physical therapy. * Get up and walk several times each day. For the first four weeks, try not to stand or walk for more than one hour at a time. If you do stand or walk for more than one hour, you will not hurt anything, but your leg will likely sw ell. * As you feel comfortable, you may change from the walker or crutches to a cane and then to independent walking. Medications: * Narcotic You will likely be sent home from the hospital with a prescription for the narcotic pain medication that worked best throughout your stay. * Cefadroxil -take the antibiotic twice a day for 10 days to help prevent infection. * Aspirin Most patients will be required to take Aspirin 81mg twice a day for 6 weeks after surgery. This is obtained [id number] and a prescription is not necessary. * Other medications may be prescribed for specific circumstances. If you have any questions, please call the office at . * Resume previous home medications unless otherwise instructed TEDs/Elastic Stockings: The white elastic stockings help limit swelling and prevent blood clots from forming in your legs.~ The more you wear them, the more they work. Wear them for six weeks. Dressing Care: The dressing can be changed after physical therapy on postop day #1. Daily dry dressing changes for a few days, especially if the incision is still draining some. If the incision is not draining then you may leave the sharmila open to air. If there is a little bit of drainage or if the sharmila are getting stuck on your clothing then cover the incision with a dry dressing. The sharmila will be removed at your 2 week follow-up appointment. Showering: You may shower 5 days from the day of surgery as long as the incision is no longer draining. You may shower with the sharmila exposed. Let soapy water run over the sharmila and pat them dry. Do not scrub or soak the incision. Things To Watch For: * Drainage from the incision site that occurs more than one week after your surgery. * Increased redness at the incision site. * Fever above 102 degrees Fahrenheit. * Unusual chest pain or shortness of breath. * Call [facility] at with any of the above problems Follow-Up Visit: Follow-up with Dr. Lora's PA (Cristóbal Marin) 2-3 weeks after your day of surgery. He will remove your sharmila and answer any questions. If you have any additional questions or concerns, Dr Lora is usually in the office at the same time and will be available An appointment was probably scheduled when you signed-up for surgery in the office. If you have any questions call Office Instructions: More detailed instructions as well as Frequently Asked Questions were provided in a folder by our office when you signed-up for surgery. Please review these instructions when you get home. If you have any further questions or concerns, please feel free to call the office at [phone] Pending Studies at Discharge: No Stand-Alone Forms: My [facility] Smoking Cessation Medications and DC Order Prescriptions: New oxycodone 5 mg Tablet 5 mg PO Q4H PRN (Reason: pain) Qty: 30 0RF cefadroxil 500 mg capsule 500 mg PO BID 10 Days Qty: 20 0RF aspirin 81 mg Tablet,Delayed Release (Dr/Ec) 81 mg PO BID 42 Days Qty: 84 0RF Continued atorvastatin 20 mg Tablet 20 mg PO HS citalopram 40 mg Tablet 40 mg PO HS cetirizine 10 mg Tablet 10 mg PO QAM pantoprazole 40 mg Tablet,Delayed Release (Dr/Ec) 40 mg PO QAM latanoprost (PF) 0.005 % Dropperette 1 drp OPHTHALMIC (EYE) HS Discharge Orders: Discharge Order (Routine); Ordered 02/11/24 Ordered By: Cristóbal Lora Admission Data Admit Date/Time: 02/10/24 12:41 Attending Provider: Cristóbal Lora Admit Provider: Cristóbal Lora Primary Care Provider: Giovanni Root
[2024-02-11 07:33] VITALS: BP 114/68; PULSE 74; RESP 18; TEMP 98.2; O2SAT 94
[2024-02-11] MEDS: MULTIVITAMIN TAB PO SCH (08:12)
[2024-02-11] MEDS: dexAMETHasone 4 MG TAB PO SCH (10:06)
== END 2024-02-11 10:31 | disposition home or self-care (01) ==
LOC: ASU 08:50 → 3E 08:50
DX: Z79.899 Other long term (current) drug therapy; Z88.2 Allergy status to sulfonamides; K21.9 Gastro-esophageal reflux disease without esophagitis; M17.11 Unilateral primary osteoarthritis, right knee; M25.761 Osteophyte, right knee; Z77.22 Contact with and (suspected) exposure to environmental tobacco smoke (acute) (chronic)